=== PATIENT | female | born 1970 | race Caucasian/White ===

== ENCOUNTER 2019-04-06 08:31 | Day surgery (SDC) | payer OTHER ==
[~2019-04-06] VITALS: Ht 149.9 cm; Wt 97.3 kg
[~2019-04-06 08:31] MED LIST: ALBU90OI6 INH; AMOX1XR PO; ASPI81CH PO; ATEN25 PO; AZIT250 PO; CYCL10 PO; Cyclobenzaprine5 MG PO; DIARRHEA MED; Excedrin Extra1 EACH; GABA300 PO; GENT.3OPSA OD; HYDACE5 PO; HYDR1TAB94 PO; IBUP800; IBUP800 PO; IMODIUM A-D2 M1 PO; METO50ER PO; NEOPOLHCSU AD; Norco 5-325 Ta1 EACH PO; OXYACE5T PO; Omeprazole20 M1; Omeprazole20 M1 PO; PRED10 PO; RANI150 PO; SULTRIDS PO
--- NOTE | 2019-04-06 10:08 | NUR ---
04/06/19 1008 Janis Krishnamurthy O2 AT 10L WITH POM MASK
== END 2019-04-06 11:00 | disposition home or self-care (01) ==
LOC: ORSCSDS 08:31
PROVIDERS: Internal Medicine Gastroenterology
PROC: 0DBK8ZX Excision of Ascending Colon, Via Natural or Artificial Opening Endoscopic, Diagnostic (ICD-10-PCS; principal; 2019-04-06 10:00)
PROC: 0DBL8ZX Excision of Transverse Colon, Via Natural or Artificial Opening Endoscopic, Diagnostic (ICD-10-PCS; principal; 2019-04-06 10:00)
PROC: 0DB68ZX Excision of Stomach, Via Natural or Artificial Opening Endoscopic, Diagnostic (ICD-10-PCS; principal; 2019-04-06 10:00)
PROC: 0D758ZZ Dilation of Esophagus, Via Natural or Artificial Opening Endoscopic (ICD-10-PCS; principal; 2019-04-06 10:00)
PROC: 0DBP8ZX Excision of Rectum, Via Natural or Artificial Opening Endoscopic, Diagnostic (ICD-10-PCS; principal; 2019-04-06 10:00)
PROC: 0DB98ZX Excision of Duodenum, Via Natural or Artificial Opening Endoscopic, Diagnostic (ICD-10-PCS; principal; 2019-04-06 10:00)
DX: K21.0 Gastro-esophageal reflux disease with esophagitis (principal); R13.10 Dysphagia, unspecified; R11.2 Nausea with vomiting, unspecified; K44.9 Diaphragmatic hernia without obstruction or gangrene; K29.70 Gastritis, unspecified, without bleeding; R19.7 Diarrhea, unspecified; Z86.010 Personal history of colon polyps; D12.3 Benign neoplasm of transverse colon; D12.2 Benign neoplasm of ascending colon; K62.1 Rectal polyp; R73.03 Prediabetes; E78.5 Hyperlipidemia, unspecified; I10 Essential (primary) hypertension; J44.9 Chronic obstructive pulmonary disease, unspecified; Z87.891 Personal history of nicotine dependence; E66.01 Morbid (severe) obesity due to excess calories; Z68.41 Body mass index [BMI] 40.0-44.9, adult; Z79.899 Other long term (current) drug therapy
CPT/HCPCS: 88305; 88312; 88342; J2704; J7120

== ENCOUNTER 2019-06-23 19:31 | Emergency (ER) | payer OTHER ==
[~2019-06-23] VITALS: Ht 149.9 cm; Wt 97.5 kg
[2019-06-23 20:29] LABS: BASOPHILS ABSOLUTE AUTO 0.09 K/mm3 (0.00-0.23); BASOPHILS PERCENT AUTO 1 % (0-2); EOSINOPHILS ABSOLUTE AUTO 0.23 K/mm3 (0.00-0.68); EOSINOPHILS PERCENT AUTO 1 % (0-6); Hemoglobin 13.7 g/dL (11.5-16.0); IMMATURE GRAN ABSOLUTE AUTO 0.19 K/mm3 (0.00-0.10); IMMATURE GRAN PERCENT AUTO 1 % (0-1); LYMPHOCYTES ABSOLUTE AUTO 5.66 K/mm3 (0.84-5.20); LYMPHOCYTES PERCENT AUTO 34 % (21-46); MONOCYTES ABSOLUTE AUTO 1.35 K/mm3 (0.16-1.47); MONOCYTES PERCENT AUTO 8 % (4-13); Mean Corpuscular HGB 28.8 pg (26.0-34.0); Mean Corpuscular HGB Conc 32.6 g/dL (31.5-36.5); Mean Corpuscular Volume 88 fL (80-100); Mean Platelet Volume 10.3 fL (9.1-12.4); NEUTROPHILS ABSOLUTE AUTO 9.32 K/mm3 (1.96-9.15); NEUTROPHILS PERCENT AUTO 55 % (41-73); Platelet Count 372 K/mm3 (150-400); RDW Coefficient Variation 13.2 % (11.7-14.2); RDW Standard Deviation 42.5 fL (35.1-46.3); Red Blood Cell Count 4.76 M/mm3 (3.80-5.20); White Blood Cell Count 16.84 K/mm3 (4.00-11.30)
[2019-06-23 20:48] LABS: Alanine Aminotransfer (ALT/SGP 82 U/L (12-78); Albumin, Blood 3.8 g/dL (3.4-5.0); Alk Phos 87 U/L (50-136); Anion Gap 5 mmol/L (6-16); Aspartate Aminotrans (AST/SGOT 66 U/L (12-37); Bilirubin, Total 0.3 mg/dL (0.1-1.0); Blood Urea Nitrogen 14 mg/dL (8-24); Bun/Creatinine Ratio 16.8 (12.0-20.0); CO2, Blood 30 mmol/L (21-32); Calcium, Blood 8.8 mg/dL (8.5-10.1); Chloride, Blood 103 mmol/L (98-108); Creatinine, Blood 0.83 mg/dL (0.40-1.00); Glomerular Filtration Rate >60 (60-); Glucose, Blood 156 mg/dL (70-99); Potassium, Blood 3.5 mmol/L (3.5-5.5); Sodium, Blood 138 mmol/L (136-145); Total Protein, Blood 7.8 g/dL (6.4-8.2)
[2019-06-23 21:20] LABS: Source, Urine Clean Catch
[2019-06-23 21:22] LABS: Bilirubin, Urine Neg (Neg); Blood, Urine 3+ (Neg); Glucose Qualitative, Urine Neg (Neg); Ketones, Urine Neg (Neg); Leukocyte Esterase, Urine Neg (Neg); Nitrite, Urine Neg (Neg); Protein, Urine 2+ (Neg); Specific Gravity, Urine 1.015 (1.003-1.022); Urobilinogen, Urine NORM (Normal)
[2019-06-23 21:34] LABS: Appearance, Urine Clear (Clear); Color, Urine Yellow (P-Yellow)
[2019-06-23 21:35] LABS: Bacteria Many /hpf; Red Blood Cells, Urine 0-2 /hpf (0-2); Squamous Epithelial Cells Mod /hpf (Few); White Blood Cells, Urine 0-2 /hpf (0-5)
[2019-06-23] MEDS ORDERED: Bactrim Ds Tab1 EACH PO (21:50)
[2019-06-23] MEDS ORDERED: Acetaminophen-1 EAC1 PO (21:50)
[2019-06-23] MEDS ORDERED: CEPH500 PO (21:50)
== END 2019-06-23 22:26 | disposition home or self-care (01) ==
LOC: ER 19:31
PROVIDERS: Physician Assistant
DX: L03.311 Cellulitis of abdominal wall (principal); Z88.6 Allergy status to analgesic agent; Z88.8 Allergy status to other drugs, medicaments and biological substances; Z79.899 Other long term (current) drug therapy; I10 Essential (primary) hypertension; J44.9 Chronic obstructive pulmonary disease, unspecified
CPT/HCPCS: 10160; 36415; 80053; 81001; 83690; 85025; 87086; 96374-59; 96375-59; 99283-25; A9270; J2405; J3010

== ENCOUNTER → 2020-01-23 | Outpatient (CLI) | payer OTHER ==
[~2020-01-23] MED LIST changes: +Acetaminophen-1 EAC1 PO; +Bactrim Ds Tab1 EACH PO; +CEPH500 PO
[2020-01-23 17:26] LABS: Protein, Urine Random 90.2 mg/dL (0.0-11.9)
== END | disposition home or self-care (01) ==
LOC: LAB 15:34 → LAB SHORT 15:34
PROVIDERS: Internal Medicine
DX: I10 Essential (primary) hypertension (principal)
CPT/HCPCS: 82570; 84156

== ENCOUNTER 2021-06-04 08:45 | Emergency (ER) | payer OTHER ==
[~2021-06-04] VITALS: Ht 149.9 cm; Wt 94.3 kg
== END 2021-06-04 10:13 | disposition home or self-care (01) ==
LOC: ER 08:45
DX: S60.221A Contusion of right hand, initial encounter (principal); I10 Essential (primary) hypertension; J44.9 Chronic obstructive pulmonary disease, unspecified; Z88.6 Allergy status to analgesic agent; Z88.5 Allergy status to narcotic agent; Z79.899 Other long term (current) drug therapy; W22.8XXA Striking against or struck by other objects, initial encounter
CPT/HCPCS: 73130; 99283-25

== ENCOUNTER 2021-08-22 12:49 | Emergency (ER) | payer OTHER ==
[~2021-08-22] VITALS: Ht 149.9 cm; Wt 94.3 kg
[2021-08-22] MEDS ORDERED: BASAGLAR K100 UNIT/6 SC (13:07)
[2021-08-22] MEDS ORDERED: Prednisone20 MG PO (15:20)
== END 2021-08-22 15:25 | disposition home or self-care (01) ==
LOC: ER 12:49
DX: H57.12 Ocular pain, left eye (principal); I10 Essential (primary) hypertension; J44.9 Chronic obstructive pulmonary disease, unspecified; E11.9 Type 2 diabetes mellitus without complications; Z88.6 Allergy status to analgesic agent; Z79.899 Other long term (current) drug therapy; Z79.4 Long term (current) use of insulin; Z87.891 Personal history of nicotine dependence
CPT/HCPCS: 70551; 99283-25

== ENCOUNTER → 2021-11-04 | Outpatient (CLI) | payer OTHER ==
[~2021-11-04] MED LIST changes: +BASAGLAR K100 UNIT/6 SC; +Prednisone20 MG PO
== END | disposition home or self-care (01) ==
LOC: LAB SHORT 07:31
DX: L91.8 Other hypertrophic disorders of the skin (principal)

== ENCOUNTER 2022-04-09 08:19 | Emergency (ER) | payer OTHER ==
[~2022-04-09] VITALS: Ht 147.3 cm; Wt 91.6 kg
[2022-04-09] MEDS ORDERED: ATEN25 PO (09:08)
[2022-04-09] MEDS ORDERED: HYDR1TAB94 PO (10:38)
== END 2022-04-09 10:55 | disposition home or self-care (01) ==
LOC: ER 08:19
DX: S39.012A Strain of muscle, fascia and tendon of lower back, initial encounter (principal); V48.1XXA Car passenger injured in noncollision transport accident in nontraffic accident, initial encounter; I10 Essential (primary) hypertension; J44.9 Chronic obstructive pulmonary disease, unspecified; E11.9 Type 2 diabetes mellitus without complications; Z79.4 Long term (current) use of insulin; Z79.899 Other long term (current) drug therapy; Z88.6 Allergy status to analgesic agent; Z87.891 Personal history of nicotine dependence
CPT/HCPCS: 72100; 96374; 96375; 99284-25; J1170; J2405

== ENCOUNTER 2022-11-29 15:41 | Emergency (ER) | payer OTHER ==
[~2022-11-29] VITALS: Ht 147.3 cm; Wt 86.2 kg
== END 2022-11-29 17:14 | disposition home or self-care (01) ==
LOC: ER 15:41
DX: M25.532 Pain in left wrist (principal); I10 Essential (primary) hypertension; J44.9 Chronic obstructive pulmonary disease, unspecified; E11.9 Type 2 diabetes mellitus without complications; X50.0XXA Overexertion from strenuous movement or load, initial encounter; Z88.8 Allergy status to other drugs, medicaments and biological substances; Z79.4 Long term (current) use of insulin; Z79.52 Long term (current) use of systemic steroids; Z79.899 Other long term (current) drug therapy; Z87.891 Personal history of nicotine dependence
CPT/HCPCS: A9270

== ENCOUNTER → 2023-10-03 | Outpatient (CLI) | payer OTHER ==
[2023-10-03 18:33] LABS: Albumin, Blood 3.8 g/dL (3.4-5.0); Anion Gap 5 mmol/L (6-16); Blood Urea Nitrogen 12 mg/dL (8-24); Bun/Creatinine Ratio 13.1 (12.0-20.0); CO2, Blood 28 mmol/L (21-32); Chloride, Blood 109 mmol/L (98-108); Creatinine, Blood 0.92 mg/dL (0.40-1.00); Glomerular Filtration Rate 74 (60-); Glucose, Blood 113 mg/dL (70-99); Phosphorus, Blood 3.3 mg/dL (2.5-4.9); Potassium, Blood 3.5 mmol/L (3.5-5.5); Sodium, Blood 142 mmol/L (136-145)
== END ==
LOC: LAB 14:00 → LAB SHORT 14:00
PROVIDERS: Hospitalist
DX: N18.31 Chronic kidney disease, stage 3a (principal)
CPT/HCPCS: 36415; 80069

== ENCOUNTER 2023-10-17 12:59 | Emergency (ER) | payer OTHER ==
[~2023-10-17] VITALS: Ht 149.9 cm; Wt 76.7 kg
[2023-10-17 13:09] VITALS: BP 166/91
[2023-10-17] MEDS ORDERED: Norco 5-325 Ta1 EACH PO ×2 (15:26→15:53)
== END 2023-10-17 16:23 | disposition home or self-care (01) ==
LOC: ER 12:59
DX: R59.0 Localized enlarged lymph nodes (principal); M25.552 Pain in left hip; I10 Essential (primary) hypertension; E11.9 Type 2 diabetes mellitus without complications; J44.9 Chronic obstructive pulmonary disease, unspecified; Z87.891 Personal history of nicotine dependence; Z79.4 Long term (current) use of insulin; Z79.899 Other long term (current) drug therapy; Z88.6 Allergy status to analgesic agent; Z88.8 Allergy status to other drugs, medicaments and biological substances; W10.9XXA Fall (on) (from) unspecified stairs and steps, initial encounter; Y93.01 Activity, walking, marching and hiking
CPT/HCPCS: 73502; 76857; 99283-25; A9270

== ENCOUNTER 2023-10-22 16:02 | Emergency (ER) | payer OTHER ==
[~2023-10-22] VITALS: Ht 149.9 cm; Wt 77.1 kg
[2023-10-22] MEDS ORDERED: CYCL10 PO (17:59)
[2023-10-22 18:10] VITALS: BP 155/88
== END 2023-10-22 18:26 | disposition home or self-care (01) ==
LOC: ER 16:02
DX: M54.50 Low back pain, unspecified (principal); G89.29 Other chronic pain; W18.30XA Fall on same level, unspecified, initial encounter; Z88.8 Allergy status to other drugs, medicaments and biological substances; Z88.6 Allergy status to analgesic agent; Z79.899 Other long term (current) drug therapy; I10 Essential (primary) hypertension; J44.9 Chronic obstructive pulmonary disease, unspecified; E11.9 Type 2 diabetes mellitus without complications; Z87.891 Personal history of nicotine dependence
CPT/HCPCS: 70450; 72070; 72100; 90471; 90714; 99284-25; A9270

== ENCOUNTER 2024-03-09 18:34 | Emergency (ER) | payer OTHER ==
[~2024-03-09] VITALS: Ht 147.3 cm; Wt 80.3 kg
[~2024-03-09 18:34] MED LIST changes: +OMEP20ER PO; -Omeprazole20 M1
[2024-03-09] MEDS ORDERED: HYDROmorphone HCl/Pf 1MG SYR IV ONE ×2 (19:50→22:30)
[2024-03-09 19:59] LABS: BASOPHILS ABSOLUTE AUTO 0.08 K/mm3 (0.00-0.23); BASOPHILS PERCENT AUTO 1 % (0-2); EOSINOPHILS ABSOLUTE AUTO 0.35 K/mm3 (0.00-0.68); EOSINOPHILS PERCENT AUTO 3 % (0-6); Hematocrit 32.6 % (33.0-51.0); Hemoglobin 10.2 g/dL (11.5-16.0); IMMATURE GRAN ABSOLUTE AUTO 0.18 K/mm3 (0.00-0.10); IMMATURE GRAN PERCENT AUTO 2 % (0-1); LYMPHOCYTES ABSOLUTE AUTO 3.06 K/mm3 (0.84-5.20); LYMPHOCYTES PERCENT AUTO 30 % (21-46); MONOCYTES ABSOLUTE AUTO 1.07 K/mm3 (0.16-1.47); MONOCYTES PERCENT AUTO 10 % (4-13); Mean Corpuscular HGB 26.4 pg (26.0-34.0); Mean Corpuscular HGB Conc 31.3 g/dL (31.5-36.5); Mean Corpuscular Volume 84 fL (80-100); Mean Platelet Volume 8.6 fL (9.1-12.4); NEUTROPHILS ABSOLUTE AUTO 5.65 K/mm3 (1.96-9.15); NEUTROPHILS PERCENT AUTO 54 % (41-73); Platelet Count 547 K/mm3 (150-400); RDW Coefficient Variation 14.1 % (11.7-14.2); RDW Standard Deviation 43.5 fL (35.1-46.3); Red Blood Cell Count 3.87 M/mm3 (3.80-5.20); White Blood Cell Count 10.39 K/mm3 (4.00-11.30)
[2024-03-09 20:18] LABS: C-REACTIVE PROTEIN, EXT RANGE 8.65 mg/dL (0.000-0.300)
[2024-03-09 20:19] LABS: Albumin, Blood 2.8 g/dL (3.4-5.0); Albumin/Globulin Ratio 0.6 (0.8-1.8); Bilirubin, Total 0.2 mg/dL (0.1-1.0); Bun/Creatinine Ratio 11.8 (12.0-20.0); Calcium, Blood 9.4 mg/dL (8.5-10.1); Creatinine, Blood 0.68 mg/dL (0.40-1.00); Globulin, Blood 4.7 g/dL (2.2-4.0); Potassium, Blood 3.3 mmol/L (3.5-5.5); Total Protein, Blood 7.5 g/dL (6.4-8.2)
[2024-03-10 00:30] VITALS: BP 114/79
== END 2024-03-10 00:54 | disposition short-term general hospital (02) ==
LOC: ER 18:34
PROVIDERS: Student in an Organized Health Care Education/Training Program
DX: S93.114A Dislocation of interphalangeal joint of right lesser toe(s), initial encounter (principal); S70.01XA Contusion of right hip, initial encounter; D64.9 Anemia, unspecified; E87.6 Hypokalemia; R33.9 Retention of urine, unspecified; Z88.6 Allergy status to analgesic agent; Z88.8 Allergy status to other drugs, medicaments and biological substances; Z79.899 Other long term (current) drug therapy; Z79.4 Long term (current) use of insulin; I10 Essential (primary) hypertension; J44.9 Chronic obstructive pulmonary disease, unspecified; E11.9 Type 2 diabetes mellitus without complications; Z87.891 Personal history of nicotine dependence
CPT/HCPCS: 28660; 72132; 72192; 73502; 73660; 80053; 85025; 85651; 86140; 96374-59; 96376-59; 99285-25; J1170; Q9967

== ENCOUNTER → 2024-05-28 | Outpatient (CLI) | payer OTHER ==
[2024-05-28 20:01] LABS: Bun/Creatinine Ratio 18.4 (12.0-20.0); Calcium, Blood 9.8 mg/dL (8.5-10.1); Creatinine, Blood 0.82 mg/dL (0.40-1.00); Potassium, Blood 3.4 mmol/L (3.5-5.5)
== END ==
LOC: LAB 16:44 → LAB SHORT 16:44
PROVIDERS: Family Medicine
DX: I10 Essential (primary) hypertension (principal); E11.9 Type 2 diabetes mellitus without complications
CPT/HCPCS: 80048; 83036

== ENCOUNTER 2024-06-30 17:17 | Emergency (ER) | payer OTHER ==
[~2024-06-30] VITALS: Ht 149.9 cm; Wt 75.8 kg
[2024-06-30] MEDS ORDERED: Diphth,Pertuss(Acell),Tet Vac 0.5 ML VIAL IM ONE (18:40)
== END 2024-06-30 18:53 | disposition home or self-care (01) ==
LOC: ER 17:17
DX: S61.211A Laceration without foreign body of left index finger without damage to nail, initial encounter (principal); W27.8XXA Contact with other nonpowered hand tool, initial encounter; Z88.6 Allergy status to analgesic agent; Z88.8 Allergy status to other drugs, medicaments and biological substances; Z79.4 Long term (current) use of insulin; Z79.899 Other long term (current) drug therapy; I10 Essential (primary) hypertension; E11.9 Type 2 diabetes mellitus without complications; J44.9 Chronic obstructive pulmonary disease, unspecified; Z87.891 Personal history of nicotine dependence
CPT/HCPCS: 12001; 90471; 90715; 99282-25

== ENCOUNTER 2025-01-05 15:34 | Emergency (ER) | payer OTHER ==
[~2025-01-05] VITALS: Ht 149.9 cm; Wt 77.1 kg
[2025-01-05 15:41] VITALS: BP 185/97
[2025-01-05] MEDS ORDERED: HYDR1TAB94 PO (17:14)
== END 2025-01-05 17:25 | disposition home or self-care (01) ==
LOC: ER 15:34
DX: S83.91XA Sprain of unspecified site of right knee, initial encounter (principal); I10 Essential (primary) hypertension; J44.9 Chronic obstructive pulmonary disease, unspecified; E11.9 Type 2 diabetes mellitus without complications; W01.0XXA Fall on same level from slipping, tripping and stumbling without subsequent striking against object, initial encounter; Z87.891 Personal history of nicotine dependence; Z79.4 Long term (current) use of insulin; Z79.899 Other long term (current) drug therapy; Z88.6 Allergy status to analgesic agent; Z88.8 Allergy status to other drugs, medicaments and biological substances
CPT/HCPCS: 73562-RT; 99283-25

== ENCOUNTER → 2025-02-25 | Outpatient (CLI) | payer OTHER ==
[2025-02-25 19:41] LABS: BASOPHILS ABSOLUTE AUTO 0.06 K/mm3 (0.00-0.23); BASOPHILS PERCENT AUTO 0 % (0-2); EOSINOPHILS ABSOLUTE AUTO 0.15 K/mm3 (0.00-0.68); EOSINOPHILS PERCENT AUTO 1 % (0-6); Hemoglobin 14.5 g/dL (11.5-16.0); IMMATURE GRAN ABSOLUTE AUTO 0.09 K/mm3 (0.00-0.10); IMMATURE GRAN PERCENT AUTO 1 % (0-1); LYMPHOCYTES ABSOLUTE AUTO 4.07 K/mm3 (0.84-5.20); LYMPHOCYTES PERCENT AUTO 28 % (21-46); MONOCYTES ABSOLUTE AUTO 1.23 K/mm3 (0.16-1.47); MONOCYTES PERCENT AUTO 9 % (4-13); Mean Corpuscular HGB 25.8 pg (26.0-34.0); Mean Corpuscular HGB Conc 31.5 g/dL (31.5-36.5); Mean Corpuscular Volume 82 fL (80-100); Mean Platelet Volume 10.3 fL (9.1-12.4); NEUTROPHILS ABSOLUTE AUTO 8.72 K/mm3 (1.96-9.15); NEUTROPHILS PERCENT AUTO 61 % (41-73); Platelet Count 442 K/mm3 (150-400); RDW Coefficient Variation 15.4 % (11.7-14.2); RDW Standard Deviation 45.1 fL (35.1-46.3); Red Blood Cell Count 5.63 M/mm3 (3.80-5.20); White Blood Cell Count 14.32 K/mm3 (4.00-11.30)
[2025-02-25 20:06] LABS: Albumin, Blood 4.4 g/dL (3.4-5.0); Bilirubin, Total 0.6 mg/dL (0.1-1.0); Bun/Creatinine Ratio 13.2 (12.0-20.0); Calcium, Blood 9.5 mg/dL (8.5-10.1); Creatinine, Blood 0.91 mg/dL (0.40-1.00); Globulin, Blood 4.2 g/dL (2.2-4.0); Potassium, Blood 3.3 mmol/L (3.5-5.5); Thyroid Stimulating Hormone 1.54 uIU/mL (0.360-4.800); Total Protein, Blood 8.6 g/dL (6.4-8.2)
== END ==
LOC: LAB 19:04 → LAB SHORT 19:04
PROVIDERS: Student in an Organized Health Care Education/Training Program
DX: R22.1 Localized swelling, mass and lump, neck (principal)
CPT/HCPCS: 80053; 84443; 85025

== ENCOUNTER 2025-09-23 15:13 | Emergency (ER) | payer OTHER ==
[~2025-09-23] VITALS: Ht 149.9 cm; Wt 77.6 kg
[~2025-09-23 15:13] MED LIST changes: +HYDCHL25 PO; +METO10 PO
[2025-09-23 15:45] LABS: BASOPHILS ABSOLUTE AUTO 0.06 K/mm3 (0.00-0.23); BASOPHILS PERCENT AUTO 1 % (0-2); EOSINOPHILS ABSOLUTE AUTO 0.21 K/mm3 (0.00-0.68); EOSINOPHILS PERCENT AUTO 2 % (0-6); Hematocrit 41.4 % (33.0-51.0); Hemoglobin 12.9 g/dL (11.5-16.0); IMMATURE GRAN ABSOLUTE AUTO 0.04 K/mm3 (0.00-0.10); IMMATURE GRAN PERCENT AUTO 0 % (0-1); LYMPHOCYTES ABSOLUTE AUTO 3.30 K/mm3 (0.84-5.20); LYMPHOCYTES PERCENT AUTO 30 % (21-46); MONOCYTES ABSOLUTE AUTO 0.79 K/mm3 (0.16-1.47); MONOCYTES PERCENT AUTO 7 % (4-13); Mean Corpuscular HGB Conc 31.2 g/dL (31.5-36.5); Mean Corpuscular Volume 81 fL (80-100); NEUTROPHILS ABSOLUTE AUTO 6.54 K/mm3 (1.96-9.15); NEUTROPHILS PERCENT AUTO 60 % (41-73); NRBC ABSOLUTE 0.00 K/mm3 (0.00-0.02); NRBC Auto 0.0 /100 WBC (0.0-0.2); Platelet Count 359 K/mm3 (150-400); RDW Coefficient Variation 17.8 % (11.7-14.2); RDW Standard Deviation 53.2 fL (35.1-46.3)
[2025-09-23 16:17] LABS: C-REACTIVE PROTEIN, EXT RANGE 2.57 mg/dL (0.000-0.300)
[2025-09-23 16:20] LABS: Alanine Aminotransfer (ALT/SGP 21.0 U/L (12-78); Albumin, Blood 3.7 g/dL (3.4-5.0); Albumin/Globulin Ratio 0.9 (0.8-1.8); Anion Gap 5.0 mmol/L (3-11); Aspartate Aminotrans (AST/SGOT 12.0 U/L (12-37); Bilirubin, Total 0.4 mg/dL (0.1-1.0); Blood Urea Nitrogen 10.0 mg/dL (8-24); CO2, Blood 32.0 mmol/L (21-32); Calcium, Blood 9.0 mg/dL (8.5-10.1); Chloride, Blood 103.0 mmol/L (98-108); Creatinine, Blood 0.86 mg/dL (0.40-1.00); Globulin, Blood 4.1 g/dL (2.2-4.0); Glucose, Blood 128.0 mg/dL (70-99); Potassium, Blood 3.8 mmol/L (3.5-5.5); Sodium, Blood 136.0 mmol/L (136-145); Total Protein, Blood 7.8 g/dL (6.4-8.2)
[2025-09-23 17:00] VITALS: BP 236/110
[2025-09-23] MEDS ORDERED: NS 1,000 ML IV SCH (18:45)
[2025-09-23] MEDS ORDERED: Ampicillin Sod/Sulbactam Sod 3 GM in NS 100 ML IV ONE (18:45)
[2025-09-23] MEDS ORDERED: RX Prepack 2 Tabs Ondansetron ODT 4MG UD ONE (19:15)
[2025-09-23] MEDS ORDERED: HYDROmorphone HCl/Pf 1MG SYR IV ONE (19:15)
[2025-09-23] MEDS ORDERED: RX Prepack 6 Tabs Oxycodone 5mg UD ONE (19:15)
[2025-09-23] MEDS ORDERED: ONDA4ODT MM (19:21)
[2025-09-23] MEDS ORDERED: Percocet 5-3251 EACH PO (19:21)
[2025-09-23] MEDS ORDERED: AMOCLA875 PO (19:21)
== END 2025-09-23 20:19 | disposition home or self-care (01) ==
LOC: ER 15:13
PROVIDERS: Student in an Organized Health Care Education/Training Program
DX: S61.452A Open bite of left hand, initial encounter (principal); W55.01XA Bitten by cat, initial encounter; M65.842 Other synovitis and tenosynovitis, left hand; I10 Essential (primary) hypertension; J44.9 Chronic obstructive pulmonary disease, unspecified; E11.9 Type 2 diabetes mellitus without complications; Z88.5 Allergy status to narcotic agent; Z88.8 Allergy status to other drugs, medicaments and biological substances; Z79.4 Long term (current) use of insulin; Z79.899 Other long term (current) drug therapy
CPT/HCPCS: 73130; 80053; 83605; 85025; 85651; 86140; 90471; 90715; 96365; 96375; 99283-25; A9270; J0295; J1171; J7030